=== PATIENT | male | born 1960 | race Caucasian/White ===

== ENCOUNTER 2017-07-15 16:27 | Emergency (ER) | payer BC ==
[~2017-07-15] VITALS: Ht 182.9 cm; Wt 100.2 kg
[2017-07-15 17:00] VITALS: TEMP 37; Ht 182.9 cm; Wt 100.2 kg
[2017-07-15] MEDS ORDERED: SODIUM CHLORIDE 0.9% 1000ML 1,000 ML IV STA (17:37)
[2017-07-15 17:45] LABS: HEMATOCRIT 37.3 % (42-52); MEAN CELL VOLUME 86.3 fL (80-100); MEAN CORPUSCULAR HEMOGLOBIN 29.4 pg (25-34); MEAN PLATELET VOLUME 11.9 fL (7.4-10.4); PLATELET COUNT 122 K/uL (130-400); RED BLOOD COUNT 4.32 M/uL (4.7-6.1); WHITE BLOOD COUNT 7.19 K/uL (4.8-10.8)
[2017-07-15 17:53] LABS: PARTIAL THROMBOPLASTIN RATIO 1.1; PROTHROMBIN TIME (PATIENT) 10.9 SECONDS (9.0-12.0)
[2017-07-15 17:58] VITALS: O2SAT 97
[2017-07-15 18:00] LABS: URINE APPEARANCE CLEAR (CLEAR); URINE COLOR DK YELLOW; URINE NITRITE POS (NEG); URINE SPECIFIC GRAVITY 1.019 (1.000-1.030); UROBILINOGEN NEG (NEG); ZZUR CULT IF INDIC CLEAN CATCH NO
[2017-07-15 18:02] LABS: BUN/CREATININE RATIO 18.5 (10-20); CALCIUM 9.6 mg/dl (8.5-10.1); CREATININE 1.5 mg/dl (0.60-1.40); POTASSIUM 3.8 mmol/L (3.5-5.1)
--- NOTE | 2017-07-15 18:04 | DIAGNOSTIC IMAGING REPORT ---
CHEST 2 VIEWS ROUTINE CLINICAL HISTORY: Pneumonia COMPARISON STUDY: No previous studies for comparison. FINDINGS: The heart is at the upper limits of normal in size. There is aortic tortuosity. There is no failure. There is no focal pulmonary consolidation. There is a chronic right first rib deformity.[ IMPRESSION: No active disease in the chest. Electronically signed by: Marcus Meehan M.D. 07/15/2017 6:03 PM Dictated Date/Time: 07/15/2017 6:03 PM
[2017-07-15 18:05] LABS: ALB/GLOB RATIO 0.8 (0.9-2)
[2017-07-15 18:06] LABS: MANUAL MICROSCOPIC REQUIRED? NO; REVIEW REQ? YES; URINE BILIRUBIN 2+ (NEG)
[2017-07-15] MEDS ORDERED: ENAL5TAB83 PO (18:12)
[2017-07-15] MEDS ORDERED: [UNRECOGNIZED DRUG - REMARK] PO (18:12)
[2017-07-15 18:26] LABS: INFLUENZA A PCR Neg for Influ A (NEG); INFLUENZA B PCR Neg for Influ B (NEG)
[2017-07-15 18:30] LABS: BASO ABS # 0.24 K/uL (0-0.2); BASOPHIL % 3.4 % (0-2); COMPLETE YES; ECHINOCYTES 1+; LYMPH ABS # 2.11 K/uL (1.2-3.4); LYMPHOCYTE % 29.3 %; NEUTROPHILS % 27.6 %; OVALOCYTES 1+; VARIANT LYM ABS # 2.17 K/uL; VARIANT LYMPHOCYTE % 30.2 %
[2017-07-15 18:40] VITALS: BP 127/92; PULSE 65; O2SAT 96
[2017-07-15 18:43] LABS: LYME DISEASE AB IGG NEG (NEG); LYME DISEASE AB IGM NEG (NEG)
[2017-07-15] MEDS ORDERED: ONDA4TAB10 SL (18:52)
[2017-07-15] MEDS ORDERED: ONDANSETRON HOME PACK 4MG OD TAB PO ONE (19:00)
--- NOTE | 2017-07-15 21:37 | EMERGENCY ROOM VISIT NOTE ---
History Report prepared by Chrystal: Capri Mays Under the Supervision of: Dr. Tyler Estrella M.D. First contact with patient: 17:10 Chief Complaint: FLU LIKE SX Stated Complaint: FLU LIKE SICK History of Present Illness The patient is a 56 year old male who presents to the Emergency Room with complaints of flu-like symptoms beginning 1 week ago. The patient states that he has been weak, light-headed, and dizzy. He also reports having a loss of appetite, and that he has had a hard time drinking water because it made him nauseous. He states that he noticed that his urine looks dark like orange juice. The patient states that he has had night sweats and tactile fevers. He denies vomiting, rashes, sorethroat, diarrhea, abdominal pain, chest pain, and shortness of breath. 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 He states that he had a normal PPD 1 month ago. He states that he has not gotten a flu shot this year. Source of History: patient Onset: 1 week ago Position: other (global) Quality: other (flu-like symptoms ) Timing: constant Associated Symptoms: + fevers, + nausea, + weakness, No sorethroat, No chest pain, No SOB, No vomiting, No abdominal pain, No diarrhea, No rash Note: additional symptoms: light-headed, dizzy, loss of appetite Review of Systems See HPI for pertinent positives & negatives. A total of 10 systems reviewed and were otherwise negative. Past Medical & Surgical Medical Problems: (1) Hypertension Family History No pertinent family history stated. Social History Smoking Status: Never Smoker Occupation Status: employed Current/Historical Medications Scheduled Enalapril (Vasotec), Unknown Dose PO DAILY Ondasetron Odt (Zofran Odt), 4 MG SL Q6H [Blood Press Med], PO DAILY [Blood Press Med], PO DAILY Allergies Coded Allergies: No Known Allergies (Unverified , 07/15/17) Physical Exam Vital Signs Date Time Temp Pulse Resp B/P (MAP) Pulse Ox O2 Delivery O2 Flow Rate FiO2 07/15/17 18:40 65 19 127/92 96 Room Air 07/15/17 17:58 97 Room Air 07/15/17 17:00 37.0 72 18 98/66 96 Room Air Physical Exam Constitutional: Vital signs reviewed. Eyes: Pupils are equal round reactive to light. Conjunctiva are noninjected. ENT: Pharynx is clear without erythema or exudate. Mucous membranes are dry. Neck supple without meningeal signs. Respiratory: Clear to auscultation bilaterally. Breath sounds are equal bilaterally. Cardiovascular: Regular rate and rhythm. No rubs or gallops. GI: Soft, nondistended and nontender. Bowel sounds are present. Musculoskeletal: No peripheral edema. No CVA tenderness. Integumentary: No cyanosis. Neurological: The patient is awake and alert. No focal deficits. Psychiatric: Normal affect. Medical Decision & Procedures ER Provider Diagnostic Interpretation: Radiology results as stated below per my review and the radiologist's interpretation: CHEST 2 VIEWS ROUTINE CLINICAL HISTORY: Pneumonia COMPARISON STUDY: No previous studies for comparison. FINDINGS: The heart is at the upper limits of normal in size. There is aortic tortuosity. There is no failure. There is no focal pulmonary consolidation. There is a chronic right first rib deformity.[ IMPRESSION: No active disease in the chest. Electronically signed by: Marcus Meehan M.D. 07/15/2017 6:03 PM Dictated Date/Time: 07/15/2017 6:03 PM Laboratory Results 07/15/17 17:22 Red Blood Count 4.32, Mean Corpuscular Volume 86.3, Mean Corpuscular Hemoglobin 29.4, Mean Corpuscular Hemoglobin Concent 34.0, Mean Platelet Volume 11.9 07/15/17 17:22 Test 07/15/17 17:22 07/15/17 17:30 07/15/17 17:39 07/15/17 17:45 White Blood Count 7.19 K/uL (4.8-10.8) Red Blood Count 4.32 M/uL (4.7-6.1) Hemoglobin 12.7 g/dL (14.0-18.0) Hematocrit 37.3 % (42-52) Mean Corpuscular Volume 86.3 fL (80-100) Mean Corpuscular Hemoglobin 29.4 pg (25-34) Mean Corpuscular Hemoglobin Concent 34.0 g/dl (32-36) Platelet Count 122 K/uL (130-400) Mean Platelet Volume 11.9 fL (7.4-10.4) RDW Standard Deviation 45.4 fL (36.4-46.3) RDW Coefficient of Variation 14.3 % (11.5-14.5) Neutrophils % (Manual) 27.6 % Lymphocytes % (Manual) 29.3 % Variant Lymphocytes % (manual) 30.2 % Monocytes % (Manual) 9.5 % Basophils % (Manual) 3.4 % (0-2) Neutrophils # (Manual) 1.98 K/uL (1.4-6.5) Total Absolute Neutrophils 1.98 K/uL (1.4-6.5) Lymphocytes # (Manual) 2.11 K/uL (1.2-3.4) Absolute Variant Lymphocytes 2.17 K/uL Total Absolute Lymphocytes 4.28 K/uL (1.2-3.4) Monocytes # (Manual) 0.68 K/uL (0.11-0.59) Basophils # (Manual) 0.24 K/uL (0-0.2) Ovalocytes 1+ Echinocytes 1+ Prothrombin Time 10.9 SECONDS (9.0-12.0) Prothromb Time International Ratio 1.0 (0.9-1.1) Activated Partial Thromboplast Time 28.9 SECONDS (21.0-31.0) Partial Thromboplastin Ratio 1.1 Anion Gap 7.0 mmol/L (3-11) Est Creatinine Clear Calc Drug Dose 66.6 ml/min Estimated GFR () 59.0 Estimated GFR (Non- 50.9 BUN/Creatinine Ratio 18.5 (10-20) Calcium Level 9.6 mg/dl (8.5-10.1) Total Bilirubin 2.7 mg/dl (0.2-1) Aspartate Amino Transf (AST/SGOT) 166 U/L (15-37) Alanine Aminotransferase (ALT/SGPT) 284 U/L (12-78) Alkaline Phosphatase 236 U/L (45-117) Total Protein 7.2 gm/dl (6.4-8.2) Albumin 3.2 gm/dl (3.4-5.0) Globulin 4.0 gm/dl (2.5-4.0) Albumin/Globulin Ratio 0.8 (0.9-2) Lyme Disease IgG Antibody NEG (NEG) Lyme Disease IgM Antibody NEG (NEG) Monoscreen POS (NEG) Influenza Type A (RT-PCR) Neg for Influ A (NEG) Influenza Type B (RT-PCR) Neg for Influ B (NEG) Bedside Lactic Acid Venous 1.29 mmol/L (0.90-1.70) Urine Color DK YELLOW Urine Appearance CLEAR (CLEAR) Urine pH 5.0 (4.5-7.5) Urine Specific [place] 1.019 (1.000-1.030) Urine Protein NEG (NEG) Urine Glucose (UA) NEG (NEG) Urine Ketones NEG (NEG) Urine Occult Blood NEG (NEG) Urine Nitrite POS (NEG) Urine Bilirubin 2+ (NEG) Urine Urobilinogen NEG (NEG) Urine Leukocyte Esterase TRACE (NEG) Urine WBC (Auto) 1-5 /hpf (0-5) Urine RBC (Auto) 0-4 /hpf (0-4) Urine Hyaline Casts (Auto) 1-5 /lpf (0-5) Urine Epithelial Cells (Auto) 10-20 /lpf (0-5) Urine Bacteria (Auto) NEG (NEG) Urine Crystals CALCIUM OXALATE (NONE Urine Pathogenic Casts /lpf (0) Laboratory results as reviewed by me. Medications Administered Medications (Trade) Dose Ordered Sig/Johanny Route Start Time Stop Time Status Last Admin Dose Admin Sodium Chloride 1,000 ml @ 999 mls/hr Q1H1M STAT IV 07/15/17 17:37 07/15/17 18:37 DC 07/15/17 17:37 999 MLS/HR Ondansetron HCl (ZOFRAN ODT 4MG Home Pack) 1 homepack UD ONCE PO 07/15/17 19:00 07/15/17 19:01 DC 07/15/17 19:11 1 HOMEPACK ED Course 1709: The patient was evaluated in room C2B. A complete history and physical exam was performed. 173: Ordered Sodium Chloride 1,000 ml @ 999 mls/hr IV. 1850: I discussed the test results with the patient. He is feeling better. 1899: Ordered Ondansetron HCl 1 homepack PO. 1901: Upon reevaluation, the patient appeared to have improvement of his symptoms. I discussed tonight's findings with him. He verbalized agreement of the treatment plan. He was discharged home. Medical Decision This is a 56-year-old male who presents with flulike symptoms. Differential diagnosis includes pneumonia, influenza, UTI, acute kidney injury, mononucleosis , Lyme disease. I did perform a limited focused review of portions of the patient's old chart on the electronic medical record. The patient has had no recent pertinent visits to this hospital. I did evaluate the patient as noted above. The patient is presenting with flulike symptoms. IV access was established. He appears clinically dehydrated so I did give him normal saline IV. I did order and personally review the patient's urinalysis and chest x-ray as described above. I did order and review the patient's blood work as noted in the electronic medical record. Rapid flu is negative. Lyme testing is negative. Monospot is positive. He does have abnormal LFTs and a slightly elevated creatinine consistent with dehydration. The LFT elevation is likely secondary to his mono. I did discuss the testicles with patient. He is feeling better. He was given a Zofran home pack to help encourage increased fluid intake. He was discharged with a prescription for Zofran and given a work note. He will follow with his doctor and was advised to have his blood work rechecked once he is feeling better. Medication Reconcilliation Current Medication List: was personally reviewed by me Blood Pressure Screening Patient's blood pressure: Low blood pressure Impression Primary Impression: Infectious mononucleosis Additional Impression: Dehydration Scribe Attestation The scribe's documentation has been prepared under my direct and personally reviewed by me in its entirety. I confirm that the note above accurately reflects all work, treatment, procedures, and medical decision making performed by me. Departure Information Dispostion Home / Self-Care Prescriptions Ondasetron Odt (ZOFRAN ODT) 4 Mg Tab 4 MG SL Q6H for Nausea, #6 TAB Prov: Tyler Estrella M.D. 07/15/17 Referrals No Doctor, Assigned (PCP) Forms HOME CARE DOCUMENTATION FORM, IMPORTANT VISIT INFORMATION Patient Instructions ED Dehydration, ED Mononucleosis, My [facility] [address] Additional Instructions You have been examined and treated today on an emergency basis only. This is not a substitute for, or an effort to provide, complete comprehensive medical care. It is impossible to recognize and treat all injuries or illnesses in a single emergency department visit. It is therefore important that you follow up closely with your physician. Call as soon as possible for an appointment. Return for worsening symptoms or if you develop decreasing urination, abdominal pain, vomiting, or any other concerning symptoms. Avoid any contact sports. Have your doctor recheck your kidney function and liver function tests. Problem Qualifiers Primary Impression: Infectious mononucleosis Infectious mononucleosis etiology: unspecified organism Infectious mononucleosis complication: without complication Qualified Codes: B27.90 - Infectious mononucleosis, unspecified without complication
--- NOTE | 2017-07-17 17:36 | Pharmacy Progress Note ---
ED Pharmacist Culture FollowUp Date of Service: Jul 17, 2017. Patient with posiitve monospot test not discharged on antibiotics. Urine culture grew gardnerella. Discussed with Dr. Gomez, no further antibiotics was deemed warranted given liekly a contaminate.
== END 2017-07-15 19:16 | disposition home or self-care (01) ==
LOC: C.EDB 16:29 → C.EDC 19:16
DX: B27.90 Infectious mononucleosis, unspecified without complication (principal); E86.0 Dehydration; I10 Essential (primary) hypertension